=== PATIENT | female | born 2005 | race Caucasian/White ===

== ENCOUNTER 2025-01-31 11:02 | Emergency (ER) | payer MEDICAID ==
[~2025-01-31] VITALS: Ht 157.5 cm; Wt 64.0 kg
[2025-01-31 11:08] VITALS: O2SAT 100
[2025-01-31 11:40] LABS: BASOPHILS % 0.4 % (0.0-2.0); EOSINOPHILS % 3.0 % (0.0-5.0); HEMATOCRIT. 36.7 % (36.0-48.0); HEMOGLOBIN. 12.4 g/dL (12.0-16.0); LYMPHOCYTES % 18.1 % (20.0-50.0); MEAN PLATELET VOLUME 7.5 fl (7.4-10.4); MONOCYTES % 5.6 % (2.0-8.0); NEUTROPHILS % 72.9 % (40.0-76.0); PLATELET 288 x1000/uL (130-400); RED BLOOD CELL COUNT 4.23 mill/uL (4.2-5.4); RED CELL DISTRIBUTION WIDTH 15.5 % (11.6-14.6)
[2025-01-31 11:47] LABS: CLARITY URINE CLOUDY (CLEAR); COLOR URINE YELLOW (YELLOW); GLUCOSE URINE NEGATIVE (NEGATIVE); KETONES URINE 1+ (NEGATIVE); LEUKOCYTE ESTERASE URINE 1+ (NEGATIVE); NITRITE URINE NEGATIVE (NEGATIVE); OCCULT BLOOD URINE TRACE (NEGATIVE); PH URINE 5.0 (4.5-8.0); PROTEIN URINE TRACE (NEGATIVE); SPECIFIC GRAVITY URINE 1.026 (1.005-1.030); UROBILINOGEN URINE 0.2 E.U./dL (0.2-1.0)
[2025-01-31 11:57] LABS: CREATININE 0.7 mg/dL (0.6-1.0); UREA NITROGEN BLOOD < 5 mg/dL (9-23)
[2025-01-31 11:59] LABS: BACTERIA URINE 3+; SQUAMOUS EPITHELIAL CELL URINE 3+ /lpf (RARE/1+); YEAST URINE NONE SEEN
[2025-01-31 11:59] LABS: ASPARTATE AMINOTRANSFERASE 18 IU/L (<34); BILIRUBIN DIRECT < 0.1 mg/dL (<=3.0); BILIRUBIN TOTAL 0.3 mg/dL (0.1-1.0); PROTEIN TOTAL 7.4 g/dL (6.0-8.3)
[2025-01-31 12:23] LABS: B-HCG QUANTITATIVE 36886 mIU/mL (<6)
[2025-01-31] MEDS ORDERED: CEPH500C2 MT (13:30)
[2025-01-31 13:50] VITALS: BP 99/55; PULSE 87; RESP 19; TEMP 36.7; O2SAT 100
== END 2025-01-31 13:57 | disposition home or self-care (01) ==
LOC: ER 11:02 → EDBD 11:02 → ER 13:57
DX: O20.9 Hemorrhage in early pregnancy, unspecified (principal); R82.71 Bacteriuria; R10.2 Pelvic and perineal pain; Z3A.13 13 weeks gestation of pregnancy
CPT/HCPCS: 36415; 76801; 80048; 80076; 81003; 84702; 85025; 86850; 86900; 99284

== ENCOUNTER 2025-04-14 20:55 | Emergency (ER) | payer MEDICAID ==
[~2025-04-14] VITALS: Ht 157.5 cm; Wt 63.1 kg
[~2025-04-14 20:55] MED LIST: CEPH500C2 MT
[2025-04-14 21:22] VITALS: O2SAT 100
[2025-04-14] MEDS: SODIUM CHLORIDE 0.9% 1,000 ML IV ONE (22:10)
[2025-04-14] MEDS: FAMOTIDINE 20MG/2ML VIAL IV ONE (22:11)
[2025-04-14] MEDS: ONDANSETRON HCL 4MG/2ML INJ IV ONE (22:11)
[2025-04-14] MEDS: ACETAMINOPHEN 500MG TABLET PO ONE (22:12)
[2025-04-14 22:21] LABS: BASOPHILS % 0.2 % (0.0-2.0); EOSINOPHILS % 3.4 % (0.0-5.0); HEMATOCRIT. 37.2 % (36.0-48.0); HEMOGLOBIN. 12.2 g/dL (12.0-16.0); LYMPHOCYTES % 17.5 % (20.0-50.0); MEAN PLATELET VOLUME 8.2 fl (7.4-10.4); MONOCYTES % 7.1 % (2.0-8.0); NEUTROPHILS % 71.8 % (40.0-76.0); PLATELET 268 x1000/uL (130-400); RED BLOOD CELL COUNT 4.05 mill/uL (4.2-5.4); RED CELL DISTRIBUTION WIDTH 15.2 % (11.6-14.6)
[2025-04-14 22:36] LABS: CREATININE 0.5 mg/dL (0.6-1.0); UREA NITROGEN BLOOD 7 mg/dL (9-23)
[2025-04-14 22:37] LABS: INR 0.9
[2025-04-14 22:38] LABS: ASPARTATE AMINOTRANSFERASE 25 IU/L (<34)
[2025-04-14 22:40] LABS: BILIRUBIN DIRECT < 0.1 mg/dL (<=3.0); BILIRUBIN TOTAL 0.3 mg/dL (0.1-1.0); PROTEIN TOTAL 6.9 g/dL (6.0-8.3)
[2025-04-14 23:35] LABS: COLOR URINE YELLOW (YELLOW); GLUCOSE URINE NEGATIVE (NEGATIVE); KETONES URINE 1+ (NEGATIVE); LEUKOCYTE ESTERASE URINE 2+ (NEGATIVE); NITRITE URINE NEGATIVE (NEGATIVE); OCCULT BLOOD URINE NEGATIVE (NEGATIVE); PH URINE 6.0 (4.5-8.0); PROTEIN URINE TRACE (NEGATIVE); SPECIFIC GRAVITY URINE 1.021 (1.005-1.030); UROBILINOGEN URINE 0.2 E.U./dL (0.2-1.0)
[2025-04-14 23:57] LABS: CLARITY URINE HAZY (CLEAR)
[2025-04-14 23:58] LABS: RBC URINE NONE SEEN /hpf (0-2)
[2025-04-15] LABS: BACTERIA URINE 1+; MUCUS URINE TRACE /lpf (< = 2+)
[2025-04-15] MEDS: CEFTRIAXONE 1GM/50ML 50 ML IV SCH (00:29)
[2025-04-15 00:31] LABS: ETHANOL BLOOD < 10 mg/dL (<10); TRIGLYCERIDE 157 mg/dL (0-150)
[2025-04-15 00:51] VITALS: BP 104/54; PULSE 96; RESP 21; TEMP 36.8; O2SAT 99
== END 2025-04-15 00:50 | disposition short-term general hospital (02) ==
LOC: ER 20:55
DX: O99.612 Diseases of the digestive system complicating pregnancy, second trimester (principal); O26.612 Liver and biliary tract disorders in pregnancy, second trimester; O23.42 Unspecified infection of urinary tract in pregnancy, second trimester; Z3A.23 23 weeks gestation of pregnancy
CPT/HCPCS: 80076; 80048; 81003; 80320; 83690; 83735; 84478; 85025; 85610; 85730; 86850; 86900; 86901; 36415; 76705; 76815; 96361; 96374; 96375 ×2; 99285; J1308; J2405; J7030; J0696; G0480